=== PATIENT | male | born 1980 | race Two or more races ===

== ENCOUNTER 2024-05-26 09:08 | Inpatient (IN) | payer OTHER ==
[~2024-05-26] VITALS: Ht 175.3 cm; Wt 11.3 kg
[2024-05-26] MEDS ORDERED: ACETAMINOPHEN 500 MG GEL..CAP PO ONE ×2 (11:00→12:34)
[2024-05-26 11:40] LABS: PH,URINE 5.5 (5.0-8.0); URINE APPEARANCE Cloudy; URINE BILIRRUBIN Small (NEGATIVE); URINE BLOOD Negative; URINE COLOR Orange; URINE GLUCOSE Negative (NEGATIVE); URINE KETONE 15 (NEGATIVE); URINE LEUKOCYTE Small; URINE NITRATE Positive
[2024-05-26 11:44] LABS: URINE BACTERIA 18.8 uL (0.0-1933); URINE CAST 2.74 uL (0.0-1.40); URINE EPITHELIAL CELLS 24.5 uL (0.0-38.8); URINE RBC 7.3 uL (0.0-20.8); URINE WBC 172.3 uL (0.0-23.2)
[2024-05-26 11:57] LABS: URINE PROTEIN 300 (NEGATIVE)
[2024-05-26 12:03] LABS: URINE MUCUS MODERATE
[2024-05-26 12:55] LABS: HEMOGLOBIN 16.4 g/dL (13-16.00); MEAN CELL VOLUME 87.3 fL (80.0-100.00); MEAN CORPUSCULAR HEMOGLOBIN 30.4 pg (27.00-32.0); MEAN CORPUSCULAR HGB CONC 34.8 g/dl (32.0-36.0); PLATELET COUNT 151 K/uL (150-450); RED BLOOD COUNT 5.38 M/uL (4.00-6.00); RED CELL DISTRIBUTION WIDTH 13.4 % (11.5-14.5)
[2024-05-26 14:06] LABS: CALCIUM 9.5 mg/dL (8.5-10.1); CREATININE SERUM 1.32 mg/dL (0.70-1.30); GFR 58.92; POTASSIUM 4.14 mEq/L (3.5-5.1)
[2024-05-26] MEDS ORDERED: 0.9 % SODIUM CHLORIDE 1,000 ML IV SCH (19:30)
[2024-05-26] MEDS ORDERED: FAMOTIDINE/PF 20 MG in 0.9 % SODIUM CHLORIDE 8 ML IV PUSH SCH (19:38)
[2024-05-26] MEDS ORDERED: ACETAMINOPHEN 500 MG GEL..CAP PO PRN (19:45)
[2024-05-26] MEDS ORDERED: FAMOTIDINE/PF 20 MG/2 ML VIAL ONE (21:22)
[2024-05-26 22:09] LABS: INR 1.06; PARTIAL THROMBOPLASTIN TIME 23.4 SECONDS (22.0-34.0); PROTHROMBIN TIME 11.5 SECONDS (9.0-11.5)
[2024-05-26 23:32] VITALS: BP 130/82; O2SAT 100
[2024-05-27 08:06] VITALS: BP 127/81; O2SAT 100
[2024-05-27] MEDS ORDERED: levoFLOXacin IN DEXTROSE 5 % 150 ML IV SCH (09:00)
[2024-05-27 15:31] VITALS: BP 117/75; O2SAT 98
[2024-05-27 20:44] VITALS: BP 138/86; O2SAT 96
[2024-05-28 01:46] VITALS: BP 127/76
[2024-05-28] MEDS ORDERED: FAMOTIDINE/PF 20 MG/2 ML VIAL ONE (08:44)
[2024-05-28] MEDS ORDERED: CODEINE PHOSPHATE/GUAIFENESIN 5 ML ML PO SCH (09:00)
[2024-05-28 09:08] LABS: HEMATOCRIT 37.4 % (39.0-48.0); HEMOGLOBIN 13.5 g/dL (13-16.00); MEAN CELL VOLUME 84.7 fL (80.0-100.00); MEAN CORPUSCULAR HEMOGLOBIN 30.5 pg (27.00-32.0); MEAN CORPUSCULAR HGB CONC 36.1 g/dl (32.0-36.0); PLATELET COUNT 147 K/uL (150-450); RED BLOOD COUNT 4.42 M/uL (4.00-6.00); RED CELL DISTRIBUTION WIDTH 13.3 % (11.5-14.5)
[2024-05-28 10:14] LABS: ALBUMIN 2.9 gm/dL (3.4-5.0); BILIRUBIN TOTAL 0.6 mg/dL (0.3-1.2); CALCIUM 8.3 mg/dL (8.5-10.1); CREATININE SERUM 0.97 mg/dL (0.70-1.30); GFR 84.08; GLOBULINA 3.1 G/DL (2.4-3.5); POTASSIUM 3.7 mEq/L (3.5-5.1)
[2024-05-28 10:38] VITALS: BP 114/67
[2024-05-28] MEDS ORDERED: ORPHENADRINE CITRATE 30 MG/ML AMPUL IV PRN (14:45)
[2024-05-28 18:38] VITALS: BP 124/67
[2024-05-29 02:22] VITALS: BP 90/60
[2024-05-29 08:27] LABS: HEMATOCRIT 34.7 % (39.0-48.0); HEMOGLOBIN 12.8 g/dL (13-16.00); MEAN CELL VOLUME 83.5 fL (80.0-100.00); MEAN CORPUSCULAR HEMOGLOBIN 30.7 pg (27.00-32.0); MEAN CORPUSCULAR HGB CONC 36.8 g/dl (32.0-36.0); PLATELET COUNT 151 K/uL (150-450); RED BLOOD COUNT 4.16 M/uL (4.00-6.00); RED CELL DISTRIBUTION WIDTH 13.4 % (11.5-14.5)
[2024-05-29] MEDS ORDERED: FAMOTIDINE/PF 20 MG/2 ML VIAL ONE (08:29)
[2024-05-29 09:22] VITALS: BP 130/86
[2024-05-29 11:24] LABS: PH,URINE 5.5 (5.0-8.0); URINE APPEARANCE Clear; URINE BILIRRUBIN Negative (NEGATIVE); URINE BLOOD Negative; URINE COLOR Yellow; URINE GLUCOSE Negative (NEGATIVE); URINE KETONE Negative (NEGATIVE); URINE LEUKOCYTE Negative; URINE NITRATE Negative; URINE PROTEIN Negative (NEGATIVE); URINE UROBILINOGEN 0.2 E.U./dl
[2024-05-29 11:28] LABS: URINE BACTERIA 6.2 uL (0.0-1933); URINE EPITHELIAL CELLS 8.7 uL (0.0-38.8); URINE RBC 2.2 uL (0.0-20.8); URINE WBC 14.8 uL (0.0-23.2)
== END 2024-05-29 12:32 | disposition left against medical advice (07) | DRG 728 ==
LOC: ER 09:10 → SEC-K 20:25 → MEDJ 20:25 → SEC-K 05-27 16:57 → MEDJ 05-27 16:58
PROVIDERS: General Practice; Internal Medicine Infectious Disease; Internal Medicine Nephrology; ADMIT Internal Medicine; ATTEND Internal Medicine
PROC: BW21ZZZ Computerized Tomography (CT Scan) of Abdomen and Pelvis (ICD-10-PCS; principal; 2024-05-26)
PROC: B020ZZZ Computerized Tomography (CT Scan) of Brain (ICD-10-PCS; 2024-05-28)
PROC: BW4GZZZ Ultrasonography of Pelvic Region (ICD-10-PCS; 2024-05-28)
PROC: BT43ZZZ Ultrasonography of Bilateral Kidneys (ICD-10-PCS; 2024-05-28)
DX: N41.0 Acute prostatitis (principal); N17.9 Acute kidney failure, unspecified; D72.819 Decreased white blood cell count, unspecified; B34.9 Viral infection, unspecified; R51.9 Headache, unspecified; M62.838 Other muscle spasm; M54.2 Cervicalgia